=== PATIENT | female | born 1975 | race Caucasian/White ===

== ENCOUNTER 2024-01-01 23:01 | Inpatient (IN) | payer OTHER, SELFPAY ==
[2024-01-01 23:13] VITALS: BP 147/99; PULSE 90; RESP 20; TEMP 36.9; O2SAT 99; BMI 26.6
[2024-01-01 23:40] LABS: Appearance Urine Cloudy; Color Urine Yellow; Glucose Urine UA Negative (Negative); Leukocyte Esterase Urine Negative (Negative); Nitrite Urine Negative (Negative); Specific Gravity - Urine 1.025 (1.005-1.025); Urine Blood Negative (Negative); Urine Ketones Negative (Negative); Urine Protein Trace mg/dL (Neg-Trace)
[2024-01-01 23:41] LABS: UPreg QC Valid YES; Urine Pregnancy NEGATIVE (NEGATIVE)
[2024-01-01 23:50] LABS: Basophils Absolute Auto 0.1 X10*3/uL (0.0-0.2); Basophils Percent Auto 0.8 % (0-2); Eosinophils Absolute Auto 0.3 X10*3/uL (0.0-0.4); Eosinophils Percent Auto 3.1 % (0-4); Hematocrit 40.5 % (37.0-47.0); Hemoglobin 14.1 g/dl (12.0-16.0); Imm Gran Abs Auto 0.04 X10*3/uL (0.00-0.03); Imm Gran Pct Auto 0.4 % (0.0-0.4); Lymphocytes Absolute Auto 2.2 X10*3/uL (1.2-4.9); Lymphocytes Percent Auto 22.4 % (20-40); MANUAL DIFF FLAG NO; Mean Corpuscular HGB Conc 34.8 g/dl (31.0-35.0); Mean Corpuscular Volume 91.8 fL (80.0-98.0); Monocytes Absolute Auto 0.7 X10*3/uL (0.1-1.2); Monocytes Percent Auto 6.7 % (2-11); Neutrophils Absolute Auto 6.7 x10*3/uL (2.0-8.3); Neutrophils Percent Auto 66.6 % (45-73); Platelet Count 250 X10*3/uL (160-400); Red Blood Count 4.41 X10*6/uL (4.20-5.50); Red Cell Distribution Width 13.1 % (11.0-16.0)
[2024-01-01 23:55] LABS: Amphetamine Screen Urine Not Detected (Not Detect); Barbiturates, Urine Not Detected (Not Detect); Benzodiazepines Screen Urine Not Detected (Not Detect); Buprenorphine Scr Not Detected (Not Detect); Cannabinoid Screen Urine POSITIVE (Not Detect); Cocaine Screen Urine Not Detected (Not Detect); Fentanyl, urine Not Detected (Not Detect); Methadone Screen, Urine Not Detected (Not Detect); Opiate Screen Urine Not Detected (Not Detect); Oxycodone Screen Urine Not Detected (Not Detect); Phencyclidine Screen Urine Not Detected (Not Detect)
--- NOTE | 2024-01-02 | ECG_ITS ---
Test Reason : qtc check Blood Pressure : / mmHG Vent. Rate : 084 BPM Atrial Rate : 084 BPM P-R Int : 172 ms QRS Dur : 096 ms QT Int : 380 ms P-R-T Axes : 060 002 046 degrees QTc Int : 449 ms Normal sinus rhythm Possible Inferior infarct , age undetermined Abnormal ECG No previous ECGs available Referred By: Yumiko Mahajan Electronically Signed By:HARRIS QUAN
[2024-01-02 00:07] LABS: Alanine Aminotransferase 14 U/L (0-31); Albumin Level 4.6 g/dL (3.5-5.0); Alkaline Phosphatase 64 U/L (39-117); Anion Gap 13 (12-20); Aspartate Amino Transferase 19 U/L (5-31); Bilirubin Total 0.3 mg/dL (0.0-1.0); Blood Urea Nitrogen 14 mg/dL (9-16); Calcium 9.6 mg/dL (8.4-10.2); Carbon Dioxide 26 mmol/L (22-29); Chloride 106 mmol/L (96-108); Creatinine Clr Calc Pharmacy 96.4; Estimated Glomerular Filt Rate > 60; Glucose Random 112 mg/dL (60-115); Potassium 4.5 mmol/L (3.3-5.1); Sodium 140 mmol/L (135-145); Total Protein 7.6 g/dL (6.5-8.0)
[2024-01-02 00:10] LABS: Ethanol < 10 mg/dL
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
[2024-01-02 02:03] LABS: Acetaminophen LAB < 3 mcg/mL (<30); Salicylate < 5.0 mg/dL (15-30)
--- NOTE | 2024-01-02 09:59 | PC.NURSE ---
pt awake/alert, ambulating throughout unit, pt rr equal/non labored, calm/compliant and watching tv, will continue with plan of care.
[2024-01-02 10:06] VITALS: BP 147/94; PULSE 80; RESP 14; TEMP 36.1; O2SAT 99
[2024-01-02] MEDS: Acetaminophen 325 MG TABLET 650 MG PO (10:21)
--- NOTE | 2024-01-02 10:21 | PC.NURSE ---
pt medicated for -12/28 headache
--- NOTE | 2024-01-02 10:29 | PC.NURSE ---
pt inquiring if her significant other can bring in her service dog in- pt states she has a picture of the service dog papers on her phone.
--- NOTE | 2024-01-02 11:32 | PC.NURSE ---
report has been given to M5
[2024-01-02] MEDS: LORazepam 1 MG TABLET PO (12:13)
--- NOTE | 2024-01-02 12:14 | PC.NURSE ---
pt began crying and having increased anxiety as her significant other has not been reachable to bring in the service dog. the patient requested to speak with care team about plan and requested medication for anxiety as well. Dr. Arias was notified and 1 mg po ativan was put in and patient was medicated per orders.
--- NOTE | 2024-01-02 13:44 | PC.NURSE ---
Lilibeth states that she plans to remain on section 12B and that she would like [facility] contacted. Called [facility] at 1:40 and left a voicemail providing her information.
[2024-01-02 13:47] VITALS: BP 153/107; PULSE 90; RESP 18; TEMP 37.2; O2SAT 98
[2024-01-02 13:52] VITALS: BMI 27.2
[2024-01-02] MEDS: hydrOXYzine HCL 25 MG TABLET PO (16:42)
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
[2024-01-02 20:00] VITALS: BP 147/88; PULSE 82; RESP 18; TEMP 36.9; O2SAT 100
[2024-01-02] MEDS: traZODone HCL 50 MG TABLET PO (21:39)
[2024-01-03 07:00] VITALS: BMI 27.0
[2024-01-03 07:52] VITALS: BP 119/70; PULSE 71; RESP 16; TEMP 36.3; O2SAT 96
[2024-01-03 08:56] LABS: Estimated Average Glucose 97 mg/dL
[2024-01-03 09:03] LABS: Cholesterol 185 mg/dL (<200); HDL Cholesterol 69 mg/dL (>40); LDL Cholesterol Calculated 104 mg/dL (<100); Triglycerides 61 mg/dL (<150)
[2024-01-03 09:20] LABS: Free T4 (Free Thyroxine) 1.02 ng/dL (0.71-1.85); Thyroid Stimulating Hormone 0.36 uIU/mL (0.32-4.0)
[2024-01-03 09:30] LABS: Folate 13.8 ng/mL (> or = 4.0); Vitamin B12 1008 pg/mL (200-900)
--- NOTE | 2024-01-03 15:38 | P.DS_ITS ---
DS: Providers Provider Date of Service: 01/03/24 Date of admission: 01/02/24 12:41 Primary care physician: Yessy Perez NP DS: Medications Discharge Medications Home Medications: Home Medications ?Medication ?Instructions ?Recorded ?Confirmed No Known Home Meds 01/01/24 01/01/24 Data Data Completed and Pending Completed studies during hospitalization [Text1]: 01/01/24 01/01/24 01/02/24 23:31 23:45 01:12 WBC 10.0 RBC 4.41 Hgb 14.1 Hct 40.5 MCV 91.8 MCH 32.0 MCHC 34.8 RDW 13.1 Plt Count 250 MPV 11.0 Immature Gran % (Auto) 0.4 Neut % (Auto) 66.6 Lymph % (Auto) 22.4 [place] % (Auto) 6.7 Eos % (Auto) 3.1 Baso % (Auto) 0.8 Lymph # (Auto) 2.2 [place] # (Auto) 0.7 Eos # (Auto) 0.3 Baso # (Auto) 0.1 Abs Immat Gran (auto) 0.04 H Absolute Neuts (auto) 6.7 Absolute Nucleated RBC 0.000 Nucleated RBC % (auto) 0.0 Sodium 140 Potassium 4.5 Chloride 106 Carbon Dioxide 26 Anion Gap 13 BUN 14 Creatinine 0.78 Estim Creat Clear Calc 96.4 Estimated GFR > 60 Random Glucose 112 Estimat Average Glucose Hemoglobin A1c % Calcium 9.6 Magnesium Total Bilirubin 0.3 AST 19 ALT 14 Alkaline Phosphatase 64 Total Protein 7.6 Albumin 4.6 Triglycerides Cholesterol LDL Cholesterol, Calc HDL Cholesterol Vitamin B12 Folate TSH Free T4 Urine Color Yellow Urine Appearance Cloudy Urine pH 7.0 Ur Specific [place] 1.025 Urine Protein Trace Urine Glucose (UA) Negative Urine Ketones Negative Urine Blood Negative Urine Nitrite Negative Ur Leukocyte Esterase Negative Urine Test NEGATIVE Salicylates < 5.0 L Urine Opiates Screen Not Detected Ur Buprenorphine Scrn Not Detected Ur Oxycodone Screen Not Detected Urine Methadone Screen Not Detected Urine Fentanyl Screen Not Detected Acetaminophen < 3 Ur Barbiturates Screen Not Detected Ur Phencyclidine Scrn Not Detected Ur Amphetamines Screen Not Detected U Benzodiazepines Scrn Not Detected Urine Cocaine Screen Not Detected U Marijuana (THC) Screen POSITIVE H Ethyl Alcohol < 10 01/03/24 08:11 WBC RBC Hgb Hct MCV MCH MCHC RDW Plt Count MPV Immature Gran % (Auto) Neut % (Auto) Lymph % (Auto) [place] % (Auto) Eos % (Auto) Baso % (Auto) Lymph # (Auto) [place] # (Auto) Eos # (Auto) Baso # (Auto) Abs Immat Gran (auto) Absolute Neuts (auto) Absolute Nucleated RBC Nucleated RBC % (auto) Sodium Potassium Chloride Carbon Dioxide Anion Gap BUN Creatinine Estim Creat Clear Calc Estimated GFR Random Glucose Estimat Average Glucose 97 Hemoglobin A1c % 5.0 Calcium Magnesium 2.0 Total Bilirubin AST ALT Alkaline Phosphatase Total Protein Albumin Triglycerides 61 Cholesterol 185 LDL Cholesterol, Calc 104 H HDL Cholesterol 69 Vitamin B12 1008 H Folate 13.8 TSH 0.36 Free T4 1.02 Urine Color Urine Appearance Urine pH Ur Specific [place] Urine Protein Urine Glucose (UA) Urine Ketones Urine Blood Urine Nitrite Ur Leukocyte Esterase Urine Test Salicylates Urine Opiates Screen Ur Buprenorphine Scrn Ur Oxycodone Screen Urine Methadone Screen Urine Fentanyl Screen Acetaminophen Ur Barbiturates Screen Ur Phencyclidine Scrn Ur Amphetamines Screen U Benzodiazepines Scrn Urine Cocaine Screen U Marijuana (THC) Screen Ethyl Alcohol DS: Summary Hospital Course Hospital Course: One day admission. Refer to admission summary Time Spent with Patient Time attestation: Total time managing care of this patient today ____ minutes. Discharge Plan Discharge Anticipated Discharge Date/Time: 01/03/24 16:00 Patient Disposition: Home, Self-Care Discharge Diagnosis: Depression Referrals: [facility] ([facility]) [Other] (mental health resources Patient may self present to be evaluated for services Sunday-Sunday 10 am-12 pm.) Yessy Perez NP [Primary Care Provider] - (office will call patient with follow-up appointment) Discharge Medications: No Action No Known Home Meds Discharge Orders: Discharge Order (Routine); Ordered 01/03/24 Ordered By: Yumiko Mahajan Diet: Advance to usual diet Activity on Discharge: As tolerated Stand Alone Forms: Patient Portal Discharge page, Community Support Print Language: Amharic Care Plan Goals: Mood and Behavioral Stabilization Health Concerns: Mood and Behavioral Stabilization Plan of Treatment: Continue scheduled activities Continue your search for therapy Call and or return as needed Assessment: No SI/HI/AH/VH, sx of psychosis or lucien Discharge Date/Time: 01/03/24 14:56
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
--- NOTE | 2024-01-05 17:23 | P.DS_ITS ---
DS: Providers Provider Date of Service: 01/03/24 Date of admission: 01/02/24 12:41 Date of discharge: 01/03/24 Primary care physician: Yessy Perez NP Admitting clinician: Yumiko Mahajan Attending physician on admission: Eric Mcgee Attending physician on discharge: Eric Mcgee Discharging clinician: Yumiko Mahajan DS: Diagnosis Discharge Diagnosis (1) Adjustment disorder with mixed disturbance of emotions and conduct: Status: Acute DS: Medications Discharge Medications Home Medications: Home Medications ?Medication ?Instructions ?Recorded ?Confirmed No Known Home Meds 01/01/24 01/01/24 Mental Status Exam Mental Status Exam Patient Appearance: Appropriate Patient Orientation: Person, Place, Time and Situation Level of Consciousness: Alert Patient Behavior: Appropriate, Talkative, Cooperative, Good Eye Contact and Crying Mood Description: Appropriate and Apprehensive Affect Description: Appropriate and Apprehensive Patient Cognition Impaired: No Ability to Follow Directions: Good Speech Pattern: Clear, Appropriate, Spontaneous Speech, Coherent and Soft-Spoken Memory Description: Intact Hallucinations: None Delusions: Not Present Thought Process: Intact and Goal Oriented Thought Content: positive for Intact, positive for Goal Oriented and positive for Suicidal Ideation (denies SI plan or intent) Depressive Symptoms: Thoughts of /Suicide (denies SI plan or intent) and Low Self Esteem Judgement: Good Data Data Completed and Pending Completed studies during hospitalization [Text1]: 01/01/24 01/01/24 01/02/24 23:31 23:45 01:12 WBC 10.0 RBC 4.41 Hgb 14.1 Hct 40.5 MCV 91.8 MCH 32.0 MCHC 34.8 RDW 13.1 Plt Count 250 MPV 11.0 Immature Gran % (Auto) 0.4 Neut % (Auto) 66.6 Lymph % (Auto) 22.4 [place] % (Auto) 6.7 Eos % (Auto) 3.1 Baso % (Auto) 0.8 Lymph # (Auto) 2.2 [place] # (Auto) 0.7 Eos # (Auto) 0.3 Baso # (Auto) 0.1 Abs Immat Gran (auto) 0.04 H Absolute Neuts (auto) 6.7 Absolute Nucleated RBC 0.000 Nucleated RBC % (auto) 0.0 Sodium 140 Potassium 4.5 Chloride 106 Carbon Dioxide 26 Anion Gap 13 BUN 14 Creatinine 0.78 Estim Creat Clear Calc 96.4 Estimated GFR > 60 Random Glucose 112 Estimat Average Glucose Hemoglobin A1c % Calcium 9.6 Magnesium Total Bilirubin 0.3 AST 19 ALT 14 Alkaline Phosphatase 64 Total Protein 7.6 Albumin 4.6 Triglycerides Cholesterol LDL Cholesterol, Calc HDL Cholesterol Vitamin B12 Folate TSH Free T4 Urine Color Yellow Urine Appearance Cloudy Urine pH 7.0 Ur Specific [place] 1.025 Urine Protein Trace Urine Glucose (UA) Negative Urine Ketones Negative Urine Blood Negative Urine Nitrite Negative Ur Leukocyte Esterase Negative Urine Test NEGATIVE Salicylates < 5.0 L Urine Opiates Screen Not Detected Ur Buprenorphine Scrn Not Detected Ur Oxycodone Screen Not Detected Urine Methadone Screen Not Detected Urine Fentanyl Screen Not Detected Acetaminophen < 3 Ur Barbiturates Screen Not Detected Ur Phencyclidine Scrn Not Detected Ur Amphetamines Screen Not Detected U Benzodiazepines Scrn Not Detected Urine Cocaine Screen Not Detected U Marijuana (THC) Screen POSITIVE H Ethyl Alcohol < 10 01/03/24 08:11 WBC RBC Hgb Hct MCV MCH MCHC RDW Plt Count MPV Immature Gran % (Auto) Neut % (Auto) Lymph % (Auto) [place] % (Auto) Eos % (Auto) Baso % (Auto) Lymph # (Auto) [place] # (Auto) Eos # (Auto) Baso # (Auto) Abs Immat Gran (auto) Absolute Neuts (auto) Absolute Nucleated RBC Nucleated RBC % (auto) Sodium Potassium Chloride Carbon Dioxide Anion Gap BUN Creatinine Estim Creat Clear Calc Estimated GFR Random Glucose Estimat Average Glucose 97 Hemoglobin A1c % 5.0 Calcium Magnesium 2.0 Total Bilirubin AST ALT Alkaline Phosphatase Total Protein Albumin Triglycerides 61 Cholesterol 185 LDL Cholesterol, Calc 104 H HDL Cholesterol 69 Vitamin B12 1008 H Folate 13.8 TSH 0.36 Free T4 1.02 Urine Color Urine Appearance Urine pH Ur Specific [place] Urine Protein Urine Glucose (UA) Urine Ketones Urine Blood Urine Nitrite Ur Leukocyte Esterase Urine Test Salicylates Urine Opiates Screen Ur Buprenorphine Scrn Ur Oxycodone Screen Urine Methadone Screen Urine Fentanyl Screen Acetaminophen Ur Barbiturates Screen Ur Phencyclidine Scrn Ur Amphetamines Screen U Benzodiazepines Scrn Urine Cocaine Screen U Marijuana (THC) Screen Ethyl Alcohol DS: Summary Hospital Course Hospital Course: One day admission. Refer to admission summary Status at Discharge Functional status at discharge: independent ambulation Overall status at discharge: patient is back to baseline Time Spent with Patient Time attestation: Total time managing care of this patient today ____ minutes. Discharge Plan Discharge Anticipated Discharge Date/Time: 01/03/24 16:00 Patient Disposition: Home, Self-Care Discharge Diagnosis: Depression Referrals: [facility] ([facility]) [Other] (mental health resources Patient may self present to be evaluated for services Sunday-Sunday 10 am-12 pm.) Yessy Perez [employer]EL[employer] [Primary Care Provider] - (office will call patient with follow-up appointment) Discharge Medications: No Action No Known Home Meds Discharge Orders: Discharge Order (Routine); Ordered 01/03/24 Ordered By: Yumiko Mahajan Diet: Advance to usual diet Activity on Discharge: As tolerated Stand Alone Forms: Patient Portal Discharge page, Community Support Print Language: Kenyan Care Plan Goals: Mood and Behavioral Stabilization Health Concerns: Mood and Behavioral Stabilization Plan of Treatment: Continue scheduled activities Continue your search for therapy Call and or return as needed Assessment: No SI/HI/AH/VH, sx of psychosis or lucien Discharge Date/Time: 01/03/24 14:56
== END 2024-01-03 14:56 | disposition home or self-care (01) | DRG 755 ==
LOC: HO.ED 01-02 01:08 → HO.PM5 01-02 12:43
PROVIDERS: Admitting Provider Clinical Nurse Specialist Psychiatric/Mental Health, Adult; Emergency Provider Emergency Medicine; PCP Nurse Practitioner Family; Visit Provider Clinical Nurse Specialist Psychiatric/Mental Health, Adult
DX: F43.25 Adjustment disorder with mixed disturbance of emotions and conduct (principal); R45.851 Suicidal ideations; F32.A Depression, unspecified; F17.290 Nicotine dependence, other tobacco product, uncomplicated; Z71.6 Tobacco abuse counseling; Z91.51 Personal history of suicidal behavior
CPT/HCPCS: 36415; 80053; 80061; 80143; 80179; 80307; 81003; 81025; 82607; 82746; 83036; 83735; 84439; 84443; 85025; 93005; 99285; S9485

== ENCOUNTER 2024-01-02 12:41 | Outpatient (BNV) | payer OTHER, SELFPAY | END 2024-01-02 14:00 | PROVIDERS: Admitting Provider Clinical Nurse Specialist Psychiatric/Mental Health, Adult; Emergency Provider Emergency Medicine; PCP Nurse Practitioner Family; Visit Provider Internal Medicine | DX: R94.31 Abnormal electrocardiogram [ECG] [EKG] (principal) | CPT/HCPCS: 93010 ==

== ENCOUNTER → 2024-01-02 12:41 | Outpatient (BNV) | payer OTHER, SELFPAY | PROVIDERS: Admitting Provider Clinical Nurse Specialist Psychiatric/Mental Health, Adult; Emergency Provider Emergency Medicine; PCP Nurse Practitioner Family; Visit Provider Clinical Nurse Specialist Psychiatric/Mental Health, Adult | DX: F33.2 Major depressive disorder, recurrent severe without psychotic features (principal); F43.25 Adjustment disorder with mixed disturbance of emotions and conduct | CPT/HCPCS: 99231; 99233 ==

== ENCOUNTER 2024-08-29 12:08 | Emergency (ER) | payer OTHER, SELFPAY ==
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
[2024-08-29 12:32] VITALS: BP 154/109; BP 158/92; PULSE 105; PULSE 88; RESP 20; TEMP 36.8; O2SAT 100; O2SAT 99; BMI 26.9
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
[2024-08-29 12:43] VITALS: RESP 20
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
[2024-08-29 14:05] VITALS: BP 135/100; PULSE 83; RESP 16; TEMP 37.2; O2SAT 99
[2024-08-29 14:11] VITALS: BP 135/100; PULSE 83; RESP 16; TEMP 37.2; O2SAT 99
== END 2024-08-29 14:12 | disposition home or self-care (01) ==
PROVIDERS: Emergency Provider Emergency Medicine Emergency Medical Services; PCP Nurse Practitioner Family
DX: S19.9XXA Unspecified injury of neck, initial encounter (principal); S10.93XA Contusion of unspecified part of neck, initial encounter; M54.2 Cervicalgia; Y04.2XXA Assault by strike against or bumped into by another person, initial encounter; Y93.9 Activity, unspecified; Y92.9 Unspecified place or not applicable; Y99.8 Other external cause status
CPT/HCPCS: 72125; 99284

== ENCOUNTER → 2024-08-29 12:36 | Outpatient (BNV) | payer OTHER, SELFPAY | PROVIDERS: Emergency Provider Emergency Medicine Emergency Medical Services; PCP Nurse Practitioner Family; Visit Provider Radiology Diagnostic Radiology | DX: E04.1 Nontoxic single thyroid nodule (principal) | CPT/HCPCS: 72125 ==

== ENCOUNTER 2024-09-20 11:14 | Emergency (ER) | payer OTHER, SELFPAY ==
[2024-09-20 11:21] VITALS: BP 162/80; PULSE 101; O2SAT 98
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
[2024-09-20 11:58] VITALS: BP 158/98; PULSE 94; RESP 16; TEMP 36.2; O2SAT 100; BMI 22.8
[2024-09-20 12:14] LABS: MANUAL DIFF FLAG NO
[2024-09-20 12:17] LABS: Basophils Absolute Auto 0.1 X10*3/uL (0.0-0.2); Basophils Percent Auto 0.9 % (0-2); Eosinophils Absolute Auto 0.2 X10*3/uL (0.0-0.4); Eosinophils Percent Auto 3.1 % (0-4); Hematocrit 41.5 % (37.0-47.0); Hemoglobin 14.4 g/dl (12.0-16.0); Imm Gran Abs Auto 0.02 X10*3/uL (0.00-0.03); Imm Gran Pct Auto 0.3 % (0.0-0.4); Lymphocytes Absolute Auto 2.4 X10*3/uL (1.2-4.9); Lymphocytes Percent Auto 35.9 % (20-40); Mean Corpuscular HGB Conc 34.7 g/dl (31.0-35.0); Mean Corpuscular Hemoglobin 31.3 pg (27.0-33.0); Mean Corpuscular Volume 90.2 fL (80.0-98.0); Mean Platelet Volume 10.6 fL (9.4-12.3); Monocytes Absolute Auto 0.4 X10*3/uL (0.1-1.2); Monocytes Percent Auto 6.4 % (2-11); Neutrophils Absolute Auto 3.6 x10*3/uL (2.0-8.3); Neutrophils Percent Auto 53.4 % (45-73); Platelet Count 249 X10*3/uL (160-400); Red Cell Distribution Width 12.6 % (11.0-16.0); White Blood Count 6.8 X10*3/uL (4.8-10.8)
[2024-09-20 12:23] LABS: Appearance Urine Cloudy; Color Urine Yellow; Glucose Urine UA Negative (Negative); Leukocyte Esterase Urine Negative (Negative); Nitrite Urine Negative (Negative); PH 6.5 (5.0-9.0); UMIC TRIGGER UACC YES; UPreg QC Valid YES; Urine Blood Negative (Negative); Urine Ketones Trace mg/dL (Negative); Urine Pregnancy NEGATIVE (NEGATIVE); Urine Protein 30 (1+) mg/dL (Neg-Trace)
[2024-09-20 12:35] LABS: Bacteria Urine 4+ (None Seen); RBC Urine 0-2 /HPF (0-2); Squamous Epithelial Cell Urine >20 /HPF (0-2); WBC Urine 0-5 /HPF (0-5)
[2024-09-20 12:40] VITALS: RESP 18
[2024-09-20 12:43] LABS: Alanine Aminotransferase 17 U/L (0-31); Albumin Level 4.6 g/dL (3.5-5.0); Anion Gap 11 (12-20); Aspartate Amino Transferase 21 U/L (5-31); Bilirubin Total 0.4 mg/dL (0.0-1.0); Blood Urea Nitrogen 16 mg/dL (9-16); Calcium 9.7 mg/dL (8.4-10.2); Carbon Dioxide 27 mmol/L (22-29); Chloride 108 mmol/L (96-108); Creatinine Clr Calc Pharmacy 99.9; Estimated Glomerular Filt Rate > 60; Ethanol < 10 mg/dL; Glucose Random 92 mg/dL (60-115); Potassium 3.8 mmol/L (3.3-5.1); Sodium 142 mmol/L (135-145); Total Protein 7.5 g/dL (6.5-8.0)
[2024-09-20 13:14] LABS: Amphetamine Screen Urine POSITIVE (Not Detect); Barbiturates, Urine Not Detected (Not Detect); Benzodiazepines Screen Urine Not Detected (Not Detect); Buprenorphine Scr Not Detected (Not Detect); Cannabinoid Screen Urine POSITIVE (Not Detect); Cocaine Screen Urine POSITIVE (Not Detect); Fentanyl, urine Not Detected (Not Detect); Methadone Screen, Urine Not Detected (Not Detect); Opiate Screen Urine Not Detected (Not Detect); Oxycodone Screen Urine Not Detected (Not Detect); Phencyclidine Screen Urine Not Detected (Not Detect)
[2024-09-20 14:24] LABS: Alkaline Phosphatase 58 U/L (39-117)
[2024-09-20 15:18] VITALS: BP 155/81; PULSE 68; RESP 16; TEMP 37; O2SAT 98
--- NOTE | 2024-09-20 15:42 | MHC.CARE ---
T/W faxed [facility] 3 day referral @ 1985. Contacted [facility] and confirmed that they received referral and have activated it.
== END 2024-09-20 15:22 | disposition home or self-care (01) ==
PROVIDERS: Physician Assistant; Emergency Provider Emergency Medicine; PCP Nurse Practitioner Family
DX: R45.851 Suicidal ideations (principal); Z72.89 Other problems related to lifestyle; Z63.0 Problems in relationship with spouse or partner; F43.25 Adjustment disorder with mixed disturbance of emotions and conduct; F32.A Depression, unspecified; Z91.51 Personal history of suicidal behavior
CPT/HCPCS: 36415; 80053; 80307; 81001; 81025; 85025; 99285; S9485